=== PATIENT | female | born 1995 | race Two or more races ===

== ENCOUNTER 2021-07-10 14:09 | Outpatient (CLI) | payer OTHER | END 2021-07-10 15:00 | disposition home or self-care (01) | LOC: PRENATAL 14:09 | PROVIDERS: ATTEND Obstetrics & Gynecology Maternal & Fetal Medicine | DX: O99.211 Obesity complicating pregnancy, first trimester (principal); O36.80X1 Pregnancy with inconclusive fetal viability, fetus 1; Z36.89 Encounter for other specified antenatal screening; Z3A.13 13 weeks gestation of pregnancy ==

== ENCOUNTER 2021-08-28 12:51 | Outpatient (CLI) | payer OTHER | END 2021-08-28 13:58 | disposition home or self-care (01) | LOC: PRENATAL 12:51 | PROVIDERS: ATTEND Obstetrics & Gynecology Maternal & Fetal Medicine | DX: O35.0XX0 Maternal care for (suspected) central nervous system malformation in fetus, not applicable or unspecified (principal); O35.3XX0 Maternal care for (suspected) damage to fetus from viral disease in mother, not applicable or unspecified; O34.219 Maternal care for unspecified type scar from previous cesarean delivery; O99.210 Obesity complicating pregnancy, unspecified trimester ==

== ENCOUNTER 2021-12-27 12:00 | Inpatient (IN) | payer OTHER ==
[~2021-12-27] VITALS: Ht 165.1 cm; Wt 3.2 kg
[2021-12-27] MEDS ORDERED: PRENATABS FA T1 EACH PO (13:02)
== END 2022-01-10 16:43 | disposition home or self-care (01) | DRG 785 ==
LOC: LDR 01-07 12:59 → OB/GYN 01-07 12:59
PROVIDERS: ADMIT Specialist; ATTEND Specialist
PROC: 0UB70ZZ Excision of Bilateral Fallopian Tubes, Open Approach (ICD-10-PCS; 2022-01-07)
PROC: 4A1HXCZ Monitoring of Products of Conception, Cardiac Rate, External Approach (ICD-10-PCS; 2022-01-07)
PROC: 10D00Z1 Extraction of Products of Conception, Low, Open Approach (ICD-10-PCS; principal; 2022-01-07 16:00)
DX: O34.211 Maternal care for low transverse scar from previous cesarean delivery (principal); Z30.2 Encounter for sterilization; Z3A.39 39 weeks gestation of pregnancy; Z37.0 Single live birth; Z20.822 Contact with and (suspected) exposure to COVID-19